=== PATIENT | female | born 1955 | race Caucasian/White ===

== ENCOUNTER 2016-12-18 08:39 | Inpatient (IN) | payer BC ==
[~2016-12-18] VITALS: Ht 165.1 cm; Wt 68.9 kg
[2016-12-18 11:50] LABS: HEMOGLOBIN 13.6 gm/dl (12.3-15.3); RED BLOOD COUNT 4.93 M/UL (4.00-5.10); WHITE BLOOD COUNT 9.9 K/UL (4.5-11.0)
[2016-12-18 12:03] LABS: BUN/CREATININE RATIO 20 (0-10)
[2016-12-18] MEDS ORDERED: OMEPRAZOLE40 MG PO (15:21)
[2016-12-18] MEDS ORDERED: LEXAPRO10 MG PO (15:21)
[2016-12-18] MEDS ORDERED: MELOXICAM15 MG PO (15:22)
[2016-12-18] MEDS ORDERED: LIPITOR TAB 1010 MG PO (15:26)
[2016-12-18] MEDS ORDERED: AMBIEN10 MG PO (15:26)
[2016-12-18] MEDS ORDERED: NORVASC 5 MG TAB5 MG PO (15:27)
[2016-12-18] MEDS ORDERED: CLOBEX118 ML TP (15:28)
[2016-12-18] MEDS ORDERED: CALCIUM500 MG PO (15:29)
[2016-12-19 05:19] LABS: HEMOGLOBIN 11.7 gm/dl (12.3-15.3)
[2016-12-19 05:25] LABS: RED BLOOD COUNT 4.3 M/UL (4.00-5.10); WHITE BLOOD COUNT 6.4 K/UL (4.5-11.0)
[2016-12-20 07:57] LABS: BUN/CREATININE RATIO 14 (0-10)
[2016-12-20 08:00] LABS: HEMOGLOBIN 10.3 gm/dl (12.3-15.3); WHITE BLOOD COUNT 6.9 K/UL (4.5-11.0)
[2016-12-20 08:16] LABS: RED BLOOD COUNT 3.75 M/UL (4.00-5.10)
[2016-12-20] MEDS ORDERED: PERCOCET 5-3251 EACH PO (10:14)
== END 2016-12-20 12:55 | disposition home or self-care (01) | DRG 494 ==
LOC: ER1 08:39 → ZEROF 12:10 → M/S 14:40
PROVIDERS: Emergency Medicine; Orthopaedic Surgery; ADMIT Family Medicine
PROC: 0QSH04Z Reposition Left Tibia with Internal Fixation Device, Open Approach (ICD-10-PCS; principal; 2016-12-19 11:30)
DX: S82.202A Unspecified fracture of shaft of left tibia, initial encounter for closed fracture (principal); S82.402A Unspecified fracture of shaft of left fibula, initial encounter for closed fracture; W01.0XXA Fall on same level from slipping, tripping and stumbling without subsequent striking against object, initial encounter; K21.9 Gastro-esophageal reflux disease without esophagitis; Z98.51 Tubal ligation status; Z98.890 Other specified postprocedural states; Z79.899 Other long term (current) drug therapy; Z79.1 Long term (current) use of non-steroidal anti-inflammatories (NSAID); Z88.0 Allergy status to penicillin; Z83.3 Family history of diabetes mellitus; Z82.49 Family history of ischemic heart disease and other diseases of the circulatory system; Z82.3 Family history of stroke; Z82.5 Family history of asthma and other chronic lower respiratory diseases; Z51.89 Encounter for other specified aftercare; M85.80 Other specified disorders of bone density and structure, unspecified site; F32.9 Major depressive disorder, single episode, unspecified; G47.00 Insomnia, unspecified
CPT/HCPCS: 29515; 36415; 73564; 73590; 73600; 76000; 80048; 85025; 85027; 85610; 85730; 93005; 96374; 96375; 96376; 97116; 97530; 99284; C1713; C1769; J1200; J1650; J1885; J2250; J2270; J2405; J3010; J7070; J7120

== ENCOUNTER → 2017-03-11 | Outpatient (CLI) | payer BC ==
[~2017-03-11] MED LIST: AMBIEN10 MG PO; CALCIUM500 MG PO; CLOBEX118 ML TP; LEXAPRO10 MG PO; LIPITOR TAB 1010 MG PO; MELOXICAM15 MG PO; NORVASC 5 MG TAB5 MG PO; OMEPRAZOLE40 MG PO; PERCOCET 5-3251 EACH PO
== END ==
LOC: KOH-I 11:41
DX: M54.5 Low back pain (principal); M54.30 Sciatica, unspecified side; M51.36 Other intervertebral disc degeneration, lumbar region
CPT/HCPCS: 72110